=== PATIENT | female | born 1995 | race Hispanic/Latino ===

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

== ENCOUNTER 2018-11-18 02:41 | Inpatient (IN) ==
[2018-11-18] MEDS ORDERED: TYLENOL PO ONE (03:12)
[2018-11-18] MEDS ORDERED: TYLENOL ONE (03:15)
[2018-11-18 03:49] LABS: BASO# 0.01 X1000 (0.0-0.2); BASO% 0.1 % (0.0-0.8); HEMATOCRIT 28.8 % (37.0-47.0); HEMOGLOBIN 9.6 g/dL (12.0-16.0); IMM GRAN# 0.05 X1000 (0.0-0.04); IMM GRAN% 0.5 % (0.0-0.5); LYMPH# 0.45 X1000 (1.2-3.4); LYMPH% 4.9 % (20.5-51.1); MCH 29.2 PG (27-31); MCHC 33.3 g/dL (33-37); MCV 87.5 FL (81-99); MONO# 0.04 X1000 (0.11-0.59); MONO% 0.4 % (1.7-9.3); MPV 10.6 FL (7.4-10.4); NEUT# 8.55 X1000 (1.4-6.5); NEUT% 94.1 % (42.2-75.2); PLT 319 X1000 (130-400); RBC 3.29 XMIL (4.2-5.4)
[2018-11-18 04:09] LABS: AGAP 14; ALBUMIN 3.5 g/dL (3.5-5.0); ALKALINE PHOSPHATASE 126 U/L (32-104); BUN 7 mg/dL (8-22); CALCIUM 8.3 mg/dL (8.8-10.2); CHLORIDE 101 mmol/L (98-107); COSMO 270; CREATININE 0.7 mg/dL (0.5-0.9); ESTIMATED GFR > 60; GLUCOSE 139 mg/dL (70-104); GOT 29 U/L (10-30); GPT 20 U/L (10-36); POTASSIUM 3.3 mmol/L (3.5-5.1); SODIUM 135 mmol/L (136-145); TCO2 20 mmol/L (25-35); TOTAL BILIRUBIN 0.44 mg/dL (0.20-1.00)
[2018-11-18] MEDS ORDERED: ROCEPHIN 1 GM in NS 50 ML IV ONE (04:15)
[2018-11-18] MEDS ORDERED: NS 1,000 ML IV ONE ×2 (04:15→06:39)
[2018-11-18] MEDS ORDERED: NS IV ONE ×2 (04:21)
--- NOTE | 2018-11-18 04:22 | PROVIDER DOCUMENTATION ---
HPI-Female /OB/Breast - General Chief Complaint: SEPSIS ALERT - D Stated Complaint: FEVER, SOB, 4 MONTHS Time Seen by Provider: 11/18/18 03:36 Allergies/Adverse Reactions: Patient Allergies Allergy/AdvReac Type Severity Reaction Status Date / Time No Known Allergies Allergy Verified 07/21/16 05:35 Home Medications: Home Medication List Medication Instructions Recorded Confirmed Last Taken Type NK [No Home Medications] 11/13/18 11/13/18 Unknown History - History of Present Illness-Female /OB Nature of Presenting Problem: pt speaks no Bruneian, minimal Turkmen. 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 She has had fever, R flank pain, dysuria for 3 days. Is 21 weeks . Is . Review of Systems - Adult - REVIEW OF SYSTEMS - ADULT Constitutional: reports: see HPI Eyes: reports: no symptoms reported Ears, Nose, Mouth & Throat: reports: no symptoms reported Cardiovascular: reports: no symptoms reported Respiratory: reports: no symptoms reported Gastrointestinal: reports: see HPI Genitourinary: reports: dysuria Musculoskeletal: reports: no symptoms reported Integumentary: reports: no symptoms reported Neurological: reports: no symptoms reported Psychiatric: reports: no symptoms reported Endocrine: reports: no symptoms reported Hematologic/Lymphatic: reports: no symptoms reported Allergic/Immunologic: reports: no symptoms reported Past History - Adult - PAST MEDICAL HISTORY-ADULT Review of Records: reports: Medications Reviewed Major Childhood Illnesses: reports: denies history Physical Exam-General - PHYSICAL EXAM-ADULT Initial Vital Signs Reviewed: Yes - CONSTITUTIONAL General Appearance: alert, mild distress - EYES Eyes: PERRL/EOMI, pink conjunctivae - HEAD, EARS, NOSE, MOUTH & THROAT HENMT: normocephalic/atraumatic, moist mucous membranes, normal ENT inspection, pharynx normal - NECK Neck: full range of motion, supple, normal inspection - RESPIRATORY Respiratory: lungs clear, normal breath sounds, no pleuratic chest pain, no respiratory distress, no accessory muscle use - CARDIOVASCULAR Cardiovascular: tachycardia - GASTROINTESTINAL (ABDOMEN) Abdominal Exam: normal bowel sounds, soft, tenderness (R flank, R upper abd) - MUSCULOSKELETAL Back Exam: CVA tenderness Extremity: normal range of motion, non-tender - SKIN Integumentary: normal color, normal turgor, warm/dry - NEUROLOGIC Neurologic: hassock maker II-XII nml as tested, grossly normal, no motor/sensory deficits - PSYCHIATRIC Psych/Mental Status: normal mood/affect, normal thought content, normal thought process, oriented x 3 Progress - PLAN OF CARE/RESULTS Progress/Plan/Lab Results: Vital Signs - 8 hr 11/18/18 03:04 11/18/18 05:19 Temperature 102.9 F H 98.9 F Pulse Rate 157 H Respiratory Rate 20 Blood Pressure 92/48 O2 Sat by Pulse Oximetry 99 Laboratory Results - last 24 hr 11/18/18 11/18/18 11/18/18 03:19 03:19 03:19 WBC 9.10 RBC 3.29 L Hgb 9.6 L Hct 28.8 L MCV 87.5 MCH 29.2 MCHC 33.3 RDW Std Deviation 14.0 Plt Count 319 MPV 10.6 H Immature Gran % (Auto) 0.5 Neut % (Auto) 94.1 H Lymph % (Auto) 4.9 L [place] % (Auto) 0.4 L Eos % (Auto) 0.0 Baso % (Auto) 0.1 Immature Gran # (Auto) 0.05 H Neut # (Auto) 8.55 H Lymph # (Auto) 0.45 L [place] # (Auto) 0.04 L Eos # (Auto) 0.00 Baso # (Auto) 0.01 PT INR PTT (Actin FS) Sodium 135 L Potassium 3.3 L Chloride 101 Carbon Dioxide 20 L Anion Gap 14 BUN 7 L Creatinine 0.7 Estimated GFR/1.73 m2 > 60 BUN/Creatinine Ratio 10 Glucose 139 H Calculated Osmolality 270 Calcium 8.3 L Total Bilirubin 0.44 AST 29 ALT 20 Alkaline Phosphatase 126 H Creatine Kinase Troponin T Total Protein 7.0 Albumin 3.5 Globulin 3.5 Albumin/Globulin Ratio 1.0 Plasma Lactate 3.0 H Ser , Semi-Qnt Urine Source Urine Color Urine Turbidity Urine pH Ur Specific [place] Urine Protein Ur Glucose (Stick) Ur Ketones (Stick) Urine Blood Urine Nitrite Urine Bilirubin Urobilinogen Dipstick Urine Leukocytes Urine WBC (Auto) Urine RBC (Auto) U Epithel Cells (Auto) Urine Bacteria (Auto) Urine Crystals Small Round Cells Urine Casts Urine Yeast-like Cells Blood Type Antibody Screen 11/18/18 11/18/18 11/18/18 03:19 03:19 03:19 WBC RBC Hgb Hct MCV MCH MCHC RDW Std Deviation Plt Count MPV Immature Gran % (Auto) Neut % (Auto) Lymph % (Auto) [place] % (Auto) Eos % (Auto) Baso % (Auto) Immature Gran # (Auto) Neut # (Auto) Lymph # (Auto) [place] # (Auto) Eos # (Auto) Baso # (Auto) PT 14.1 INR 1.01 PTT (Actin FS) 31.1 Sodium Potassium Chloride Carbon Dioxide Anion Gap BUN Creatinine Estimated GFR/1.73 m2 BUN/Creatinine Ratio Glucose Calculated Osmolality Calcium Total Bilirubin AST ALT Alkaline Phosphatase Creatine Kinase 32 Troponin T Total Protein Albumin Globulin Albumin/Globulin Ratio Plasma Lactate Ser , Semi-Qnt Urine Source Urine Color Urine Turbidity Urine pH Ur Specific [place] Urine Protein Ur Glucose (Stick) Ur Ketones (Stick) Urine Blood Urine Nitrite Urine Bilirubin Urobilinogen Dipstick Urine Leukocytes Urine WBC (Auto) Urine RBC (Auto) U Epithel Cells (Auto) Urine Bacteria (Auto) Urine Crystals Small Round Cells Urine Casts Urine Yeast-like Cells Blood Type O POSITIVE Antibody Screen NEGATIVE 11/18/18 11/18/18 11/18/18 03:19 03:19 04:12 WBC RBC Hgb Hct MCV MCH MCHC RDW Std Deviation Plt Count MPV Immature Gran % (Auto) Neut % (Auto) Lymph % (Auto) [place] % (Auto) Eos % (Auto) Baso % (Auto) Immature Gran # (Auto) Neut # (Auto) Lymph # (Auto) [place] # (Auto) Eos # (Auto) Baso # (Auto) PT INR PTT (Actin FS) Sodium Potassium Chloride Carbon Dioxide Anion Gap BUN Creatinine Estimated GFR/1.73 m2 BUN/Creatinine Ratio Glucose Calculated Osmolality Calcium Total Bilirubin AST ALT Alkaline Phosphatase Creatine Kinase Troponin T < 0.010 Total Protein Albumin Globulin Albumin/Globulin Ratio Plasma Lactate Ser , Semi-Qnt 5834.0 Urine Source CATH Urine Color ORANGE Urine Turbidity TURBID Urine pH 5.5 Ur Specific [place] 1.010 Urine Protein 70 A Ur Glucose (Stick) TRACE Ur Ketones (Stick) 10 A Urine Blood MODERATE A Urine Nitrite POSITIVE A Urine Bilirubin NEGATIVE Urobilinogen Dipstick NORMAL Urine Leukocytes LARGE A Urine WBC (Auto) TNTC A Urine RBC (Auto) 20-40 A U Epithel Cells (Auto) <10 Urine Bacteria (Auto) 4+ Urine Crystals NONE SEEN Small Round Cells NONE SEEN Urine Casts NONE SEEN Urine Yeast-like Cells PRESENT Blood Type Antibody Screen Orders Category Date Time Status Cardiac Monitoring DIRECTED Care 11/18/18 04:06 Active IV Insertion ORDERED Care 11/18/18 04:06 Completed Notify MD of + Sepsis Screen NOW Care 11/18/18 04:06 Active Notify Physician As Ordered Care 11/18/18 04:06 Active CHEST-PORTABLE [RAD] Stat Exams 11/18/18 04:53 Taken BLOOD CULTURE [BLDCUL] Stat Lab 11/18/18 04:30 Results CBC WITH DIFF [HEME] Stat Lab 11/18/18 03:19 Completed CK PROFILE [SP CHEM] Stat Lab 11/18/18 03:19 Completed COMPREHENSIVE METABOLIC PANEL [CHEM] Stat Lab 11/18/18 03:19 Completed LACTATE, PLASMA [CHEM] Lab 11/18/18 07:15 Uncollected LACTATE, PLASMA [CHEM] Lab 11/18/18 10:15 Uncollected LACTATE, PLASMA [CHEM] Stat Lab 11/18/18 03:19 Completed PROTIME WITH INR [COAG] Stat Lab 11/18/18 03:19 Completed PTT [COAG] Stat Lab 11/18/18 03:19 Completed QUANT TEST Stat Lab 11/18/18 03:19 Completed TROPONIN T Stat Lab 11/18/18 03:19 Completed TYPE & SCREEN [BBK] Stat Lab 11/18/18 03:19 Completed UA NIMS W/REFLEX CULT [URINALYSIS] Stat Lab 11/18/18 04:12 Completed URINE CULTURE [RM] Routine Lab 11/18/18 04:51 Received URINE MANUAL MICROSCOPIC [URINALYSIS] Stat Lab 11/18/18 04:12 Completed 0.9% Sodium Chloride Inj [Ns] 1,000 ml Med 11/18/18 04:21 Active 0.9% Sodium Chloride Inj [Ns] 500 ml IV 999 mls/hr 0.9% Sodium Chloride Inj [Ns] 1,000 ml Med 11/18/18 04:15 Discontinued IV 999 mls/hr 0.9% Sodium Chloride Inj [Ns] 500 ml Med 11/18/18 04:30 Discontinued .ROUTE As directed Acetaminophen [Tylenol] Med 11/18/18 03:15 Discontinued 650 mg .ROUTE .STK-MED ONE Acetaminophen [Tylenol] Med 11/18/18 03:12 Discontinued 650 mg PO NOW ONE CefTRIAXONE [Rocephin] 1 gm Med 11/18/18 04:15 Discontinued 0.9% Sodium Chloride Inj [Ns] 50 ml IV NOW Oxygen Device Stat Oth 11/18/18 04:06 Active EKG [EKG] Stat Ther 11/18/18 02:45 Ordered Result Diagrams: 11/18/18 03:19 11/18/18 03:19 - EKG 1 Time of EKG reading by physician:: 03:08 EKG Read and Signed by:: Jeremy Bunch EKG Interpretation (*Must complete 3 of following elements*): Abnormal Rate: 157 Rhythm: sinus tach [place]: normal QRS: normal ST Wave: non-specific ST changes - XRAY 1 XRAY Study: Chest Impression: Normal - CONSULTS/PCP/HOSPITALIST Notification #1 *Consult/PCP/Hospitalist*: [place] Time Discussed: 05:39 Consult Disposition: Admit Departure - Departure Date of Disposition Decision: 11/18/18 Time of Disposition Decision: 03:45 DIAGNOSIS: Intrauterine Pyelonephritis complicating Qualifiers: Trimester: second trimester Qualified Code(s): O23.02 - Infections of kidney in , second trimester Disposition: ADMITTED INPATIENT 09 Certified Medical Emergency: Emergent Condition: Good Referrals and Follow-Ups: None,PCP [Primary Care Provider] - - Critical Care Note This patient required my direct & personal management of CC.: No Attestation - Physician/ HERON Attestation Patient care was provided by Advanced Practice Provider:: No The physician spent face to face time with patient:: Yes Advanced Practice Provider documentation review:: Supervising physician onsite and consulted in the evaluation and care of this patient. The physician did have a face to face encounter with the patient.
[2018-11-18 04:29] LABS: INR 1.01; PROTIME 14.1 Seconds (11.0-16.0)
[2018-11-18 04:30] LABS: PTT 31.1 Seconds (22.3-41.8)
[2018-11-18] MEDS ORDERED: NS 500 ML ONE (04:30)
[2018-11-18 04:36] LABS: URINE SOURCE CATH
[2018-11-18 04:40] LABS: BILIRUBIN URINE NEGATIVE (NEGATIVE); BLOOD URINE MODERATE (NEGATIVE); COLOR ORANGE; GLUCOSE URINE TRACE mg/dL (NEGATIVE); KETONE URINE 10 mg/dL (NEGATIVE); LEUKOCYTES URINE LARGE (NEGATIVE); NITRITE URINE POSITIVE (NEGATIVE); PH URINE 5.5; PROTEIN URINE 70 mg/dL (NEGATIVE); TURBIDITY URINE TURBID (CLEAR); UROBILINOGEN URINE NORMAL (NORMAL)
[2018-11-18 04:47] LABS: UR EPITHELIAL CELLS <10 /HPF (<10); URINE BACTERIA 4+ /HPF; URINE RBC 20-40 /HPF (<10); URINE WBC TNTC /HPF (<10)
[2018-11-18 04:51] LABS: URINE CASTS NONE SEEN; URINE CRYSTALS NONE SEEN; URINE SMALL ROUND CELLS NONE SEEN; URINE YEAST PRESENT
[2018-11-18] MEDS ORDERED: TYLENOL PO PRN (07:11)
[2018-11-18] MEDS ORDERED: NS 500 ML IV SCH (07:15)
--- NOTE | 2018-11-18 07:58 | Diag Imaging Result Doc PS360 ---
CHEST-PORTABLE - 11/18/2018 INDICATION: sepsis COMPARISON: None FINDINGS: Lung volumes are severely low. There are nonspecific bibasilar infiltrates or areas of atelectasis. Heart size is top normal. No pneumothorax or large pleural effusion. IMPRESSION: Nonspecific findings. Electronically signed by Rio Mccann 11/18/2018 7:56 AM
--- NOTE | 2018-11-18 08:01 | H&P REVIEW ---
H&P Update Document any changes: 23 YOF with IUP at 21 weeks transfered from [facility] ED to [facility] because of IUP 21 weeks with Pyelonephritis and elevated lactate. Temp was 102 upon arrival to [facility] ED. Lactate was 3. She was bolused with at least 1.5 L of NS and given 1gm of Rocephin. Pt had been seen on the 14 of November at [facility] and u/s performed because of vaginal bleeding. Pt c/o right flank pain. FM+. Denies vaginal bleeding or ROM. PMH: denies. PSH: denies. PobHx: x2. Meds: denies. NKDA. Non smoker. PE: Upon arrival to [facility] VS are stable. Pul: clear. RRR without M. R CVAT. Fundus is soft and nontender. Abd: soft and nontender. Lower ext: no calf tenderness, no edema. DTR 1+. Pelvic: deferred. FHR 146. A/P: IUP 21 weeks with Pyelonephritis. Continue to follow lactate labs. Another NS bolus of 500 ml. Rochephin started. Cultures sent from ED.
[2018-11-18] MEDS ORDERED: STADOL IV ONE (08:47)
[2018-11-18] MEDS ORDERED: ROCEPHIN 1 GM in NS 50 ML IV SCH (09:00)
[2018-11-18] MEDS: LR 1,000 ML IV SCH ×2 (09:06→16:35)
[2018-11-18] MEDS: NS 1,000 ML IV SCH ×2 (12:47→16:38)
[2018-11-18] MEDS: PERCOCET-5 PO PRN ×2 (14:13→18:31)
[2018-11-18 15:22] LABS: BASO# 0.01 X1000 (0.0-0.2); BASO% 0.1 % (0.0-0.8); EOS# 0.03 X1000 (0.0-0.7); EOS% 0.2 % (0.0-10.0); HEMATOCRIT 20.6 % (37.0-47.0); HEMOGLOBIN 6.9 g/dL (12.0-16.0); IMM GRAN# 0.08 X1000 (0.0-0.04); IMM GRAN% 0.5 % (0.0-0.5); LYMPH# 1.29 X1000 (1.2-3.4); LYMPH% 8.3 % (20.5-51.1); MCH 29.9 PG (27-31); MCHC 33.5 g/dL (33-37); MCV 89.2 FL (81-99); MONO# 0.73 X1000 (0.11-0.59); MONO% 4.7 % (1.7-9.3); NEUT% 86.2 % (42.2-75.2); PLT 229 X1000 (130-400); RBC 2.31 XMIL (4.2-5.4); RDW 14.2 % (11.5-14.5); WBC 15.54 X1000 (4.8-10.8)
[2018-11-18 15:45] LABS: ANISOCYTOSIS 1+; BANDS 5 % (0-1); LYMPHS 10 % (21-51); MONO 7 % (1-9); SEGS 76 % (42-75)
[2018-11-18] MEDS ORDERED: NS 250 ML IV SCH (20:15)
[2018-11-18] MEDS: ROCEPHIN 1 GM in NS 50 ML IV SCH (20:27)
[2018-11-19] MEDS: PERCOCET-5 PO PRN ×6 (00:33→22:54)
[2018-11-19] MEDS: LR 1,000 ML IV SCH ×3 (04:36→18:36)
[2018-11-19 05:55] LABS: BASO# 0.01 X1000 (0.0-0.2); BASO% 0.1 % (0.0-0.8); EOS% 0.8 % (0.0-10.0); HEMATOCRIT 21.4 % (37.0-47.0); HEMOGLOBIN 6.9 g/dL (12.0-16.0); IMM GRAN# 0.05 X1000 (0.0-0.04); IMM GRAN% 0.4 % (0.0-0.5); LYMPH# 1.77 X1000 (1.2-3.4); LYMPH% 14.4 % (20.5-51.1); MCH 29.1 PG (27-31); MCHC 32.2 g/dL (33-37); MCV 90.3 FL (81-99); MONO# 0.87 X1000 (0.11-0.59); MONO% 7.1 % (1.7-9.3); MPV 10.2 FL (7.4-10.4); NEUT# 9.49 X1000 (1.4-6.5); NEUT% 77.2 % (42.2-75.2); PLT 203 X1000 (130-400); RBC 2.37 XMIL (4.2-5.4); RDW 14.5 % (11.5-14.5); WBC 12.29 X1000 (4.8-10.8)
--- NOTE | 2018-11-19 07:57 | EKG Report ---
Test Performed on : 11/18/2018 02:52:42 AM Test Reason : sob Blood Pressure : / mmHG Vent. Rate : 157 BPM Atrial Rate : 157 BPM P-R Int : 120 ms QRS Dur : 064 ms QT Int : 314 ms P-R-T Axes : 046 069 013 degrees QTc Int : 507 ms Sinus tachycardia. Nonspecific ST abnormality Abnormal ECG No previous ECGs available Unconfirmed Result
[2018-11-19] MEDS: ROCEPHIN 1 GM in NS 50 ML IV SCH ×2 (08:12→20:29)
[2018-11-19] MEDS ORDERED: PHENERGAN IV PRN (08:46)
[2018-11-19] MEDS ORDERED: SODIUM CHLORIDE 0.9% INJ PRN (08:46)
--- NOTE | 2018-11-19 08:51 | OB/GYN PROGRESS NOTE ---
Progress Note OB - . Patient Problems: Current Active Problems Problem Status Onset Intrauterine Acute Pyelonephritis complicating Acute OB Progress Note: Vital Signs - 24 hr 11/18/18 09:21 11/18/18 09:28 11/18/18 09:50 Temperature 98.1 F 99.6 F 100 F H Pulse Rate 120 H 123 H Respiratory Rate 18 Blood Pressure 99/51 O2 Sat by Pulse Oximetry 100 11/18/18 11:28 11/18/18 14:08 11/18/18 15:18 Temperature 99.6 F 98.4 F 98.1 F Pulse Rate 112 H 98 H 98 H Respiratory Rate 16 18 16 Blood Pressure 81/45 84/49 80/46 O2 Sat by Pulse Oximetry 98 99 11/18/18 19:10 11/18/18 21:10 11/18/18 23:22 Temperature 97.5 F L 98.4 F 98.3 F Pulse Rate 89 90 82 Respiratory Rate 18 16 16 Blood Pressure 85/54 75/42 90/51 O2 Sat by Pulse Oximetry 99 99 100 11/19/18 02:46 11/19/18 07:15 Temperature 98.5 F 98.3 F Pulse Rate 92 H 89 Respiratory Rate 16 16 Blood Pressure 77/47 O2 Sat by Pulse Oximetry 100 100 Laboratory Results - last 24 hr 11/18/18 11/18/18 11/19/18 09:45 15:10 05:38 WBC 15.54 H 12.29 H RBC 2.31 L 2.37 L Hgb 6.9 L D 6.9 L Hct 20.6 L D 21.4 L MCV 89.2 90.3 MCH 29.9 29.1 MCHC 33.5 32.2 L RDW Std Deviation 14.2 14.5 Plt Count 229 203 MPV 10.0 10.2 Immature Gran % (Auto) 0.5 0.4 Neut % (Auto) 86.2 H 77.2 H Lymph % (Auto) 8.3 L 14.4 L [place] % (Auto) 4.7 7.1 Eos % (Auto) 0.2 0.8 Baso % (Auto) 0.1 0.1 Immature Gran # (Auto) 0.08 H 0.05 H Neut # (Auto) 13.40 H 9.49 H Lymph # (Auto) 1.29 1.77 [place] # (Auto) 0.73 H 0.87 H Eos # (Auto) 0.03 0.10 Baso # (Auto) 0.01 0.01 Segmented Neutrophils 76 H Band Neutrophils 5 H Lymphocytes 10 L Monocytes 7 Atypical Lymphocytes 2.0 Anisocytosis 1+ Plasma Lactate 0.8 Pt c/o pain. It is controlled with meds. She does have some nausea and vomited this morning. +FM no ctxs/VB/LOF no CP/SOB Vitals as above Gen: AAOx3 NAD CV: RRR no g/m/r Lungs: CTAB no w/r/r Abd: gravid NT BacK Right CVAT Ext: no c/c/e Labs: urine culture + gram negative rods A: IUP at 21 weeks pyelonephritis Nausea P: Cont IV abx Phenergan for N/V Await culture results
[2018-11-19] MEDS: FERROUS SULFATE PO SCH ×2 (13:29→20:30)
[2018-11-19] MEDS ORDERED: ZOFRAN IV PRN (18:37)
[2018-11-20] MEDS: LR 1,000 ML IV SCH ×2 (03:22→17:17)
[2018-11-20] MEDS: PERCOCET-5 PO PRN ×2 (03:33→15:06)
--- NOTE | 2018-11-20 05:55 | OB/GYN PROGRESS NOTE ---
Progress Note OB - . Patient Problems: Current Active Problems Problem Status Onset Intrauterine Acute Pyelonephritis complicating Acute OB Progress Note: Vital Signs - 24 hr 11/19/18 07:15 11/19/18 12:30 11/19/18 16:40 Temperature 98.3 F 99.5 F 98.5 F Pulse Rate 89 91 H 99 H Respiratory Rate 16 16 16 Blood Pressure 77/47 85/54 94/55 O2 Sat by Pulse Oximetry 100 100 100 11/19/18 20:24 11/20/18 00:11 11/20/18 03:35 Temperature 99.8 F H 98.4 F 98.1 F Pulse Rate 107 H 107 H 102 H Respiratory Rate 22 20 20 Blood Pressure 98/59 89/50 98/61 O2 Sat by Pulse Oximetry 100 98 100 Laboratory Results - last 24 hr 11/19/18 05:38 WBC 12.29 H RBC 2.37 L Hgb 6.9 L Hct 21.4 L MCV 90.3 MCH 29.1 MCHC 32.2 L RDW Std Deviation 14.5 Plt Count 203 MPV 10.2 Immature Gran % (Auto) 0.4 Neut % (Auto) 77.2 H Lymph % (Auto) 14.4 L [place] % (Auto) 7.1 Eos % (Auto) 0.8 Baso % (Auto) 0.1 Immature Gran # (Auto) 0.05 H Neut # (Auto) 9.49 H Lymph # (Auto) 1.77 [place] # (Auto) 0.87 H Eos # (Auto) 0.10 Baso # (Auto) 0.01 The pt states that she still has back pain but it is much better. She has not had any fever overnight no ctxs, VB, LOF +FM Vitals as above Gen: AAOx3 NAD CV: RRR no g/m/r Lungs: CTAB no w/r/r Abd: +BS soft Gravid Ext: no C/C/E Labs UC sensitivities pending A: IUP at 21 weeks pyeolnephritis P: Cont IV abx transition to po when culture is complete CBC today Possible D/C tomorrow or
[2018-11-20 06:45] LABS: BASO# 0.01 X1000 (0.0-0.2); BASO% 0.1 % (0.0-0.8); EOS# 0.01 X1000 (0.0-0.7); EOS% 0.1 % (0.0-10.0); HEMATOCRIT 21.5 % (37.0-47.0); IMM GRAN# 0.04 X1000 (0.0-0.04); IMM GRAN% 0.5 % (0.0-0.5); LYMPH# 1.11 X1000 (1.2-3.4); LYMPH% 14.4 % (20.5-51.1); MCHC 32.6 g/dL (33-37); MCV 89.2 FL (81-99); MONO# 0.57 X1000 (0.11-0.59); MONO% 7.4 % (1.7-9.3); MPV 10.2 FL (7.4-10.4); NEUT# 5.95 X1000 (1.4-6.5); NEUT% 77.5 % (42.2-75.2); PLT 220 X1000 (130-400); RBC 2.41 XMIL (4.2-5.4); WBC 7.69 X1000 (4.8-10.8)
[2018-11-20] MEDS: FERROUS SULFATE PO SCH (10:08)
[2018-11-20] MEDS: ROCEPHIN 1 GM in NS 50 ML IV SCH ×2 (10:08→20:20)
[2018-11-20] MEDS ORDERED: SALINE LOCK IV FLUID XX ONE (10:27)
[2018-11-21 09:02] VITALS: BP 87/53
[2018-11-21] MEDS: FERROUS SULFATE PO SCH (09:07)
[2018-11-21] MEDS: PERCOCET-5 PO PRN (09:08)
--- NOTE | 2018-11-21 14:03 | DISCHARGE SUMMARY ---
ADMISSION DATE: 11/18/2018 DISCHARGE DATE: 11/21/2018 ADMISSION DIAGNOSES: Intrauterine 21 weeks with right pyelonephritis. FINAL DIAGNOSIS: Intrauterine 21 weeks with right pyelonephritis. PROCEDURES: 1. IV antibiotics. 2. Urine culture. 3. Obstetrical ultrasound. BRIEF HISTORY: The patient is a 23-year-old female, who presents with side pain. She is a G3, P2 with no care to date. Patient was noted to have a fever and elevated white count, and was admitted for treatment of right pyelonephritis. PAST MEDICAL HISTORY: Unremarkable. PAST SURGICAL HISTORY: None. OB HISTORY: She is a G3, P2, spontaneous vaginal delivery x2. MEDICATIONS: None. ALLERGIES: No known drug allergies. SOCIAL HISTORY: Tobacco use none. PHYSICAL EXAMINATION: Vital Signs: Stable. Abdomen: Right CVA tenderness. Lungs: Clear. Heart: Regular rate and rhythm. Extremities: No calf tenderness. No edema DTRs 1+. Pelvic: heart rate was 146. Pelvic ultrasound was performed and identified [place] IUP with the dating of 21 weeks. ASSESSMENT AND PLAN: A 23-year-old G3, P2, at 21 weeks gestation with a right pyelonephritis. Patient to be admitted and started on IV antibiotics. Also, she was started on iron for anemia. HOSPITAL COURSE: The patient was placed on Rocephin for antibiotic therapy. Urine culture identified E. coli that was sensitive to penicillin. The patient improved. From a pain standpoint, she was able to tolerate food. Fevers defervesced and white count improved. It was felt on hospital day #4 that she could be discharged home. DISCHARGE PLANS: The patient will be discharged home. Follow up in 1 week for care establishment as well as to follow up her pyelonephritis. DISCHARGE MEDICATIONS: 1. vitamins. 2. Iron sulfate. 3. Penicillin 500 mg. cc: Rony Martin III, MD
== END 2018-11-21 11:00 | disposition home or self-care (01) | DRG 833 ==
LOC: ED 02:41 → P.LD 05:47
PROVIDERS: ADMIT Emergency Medicine; ATTEND Obstetrics & Gynecology
CPT/HCPCS: 71010; 71045; 80053; 81001; 82550; 83605; 84484; 84702; 85025; 85610; 85730; 86850; 86900; 86901; 87040; 87077; 87088; 87186; 93005; A9270; J0595; J0696; J2550; J7030; J7040; J7050; J7120

== ENCOUNTER 2019-03-24 07:18 | Inpatient (IN) ==
--- NOTE | 2019-03-24 07:39 | PROVIDER DOCUMENTATION ---
HPI-Female /OB/Breast - General Chief Complaint: Female Stated Complaint: 11M / IN LABOR Time Seen by Provider: 03/24/19 07:34 Source: reports: patient Allergies/Adverse Reactions: Patient Allergies Allergy/AdvReac Type Severity Reaction Status Date / Time No Known Allergies Allergy Verified 03/24/19 07:27 Home Medications: Home Medication List Medication Instructions Recorded Confirmed Last Taken Type NK [No Home Medications] 11/13/18 03/24/19 Unknown History - History of Present Illness-Female /OB Nature of Presenting Problem: 3rd water broke at 5 am has been having contractions every 2 to 3 minutes Does patient report she is ?: Yes Location of complaint: reports: vaginal Radiation: reports: none Quality of Pain: reports: cramping Severity in ED: reports: severe Onset/Duration: reports: 1-3 hours ago Timing: reports: still present, getting worse Context/Activities at Onset: reports: none Vaginal Symptoms: denies: abnormal bleeding, passing clots/tissue Vaginal Bleeding Amount: None Urinary Symptoms: reports: no symptoms Related Symptoms: reports: pelvic pain Leakage of Fluid: uncertain Modifying Factors: improves with: nothing Similar Symptoms Previously?: No Recently seen or treated by another doctor?: No Review of Systems - Adult - REVIEW OF SYSTEMS - ADULT Constitutional: reports: no symptoms reported Eyes: reports: no symptoms reported Ears, Nose, Mouth & Throat: reports: no symptoms reported Cardiovascular: reports: no symptoms reported Respiratory: reports: no symptoms reported Gastrointestinal: reports: no symptoms reported Genitourinary: reports: no symptoms reported Musculoskeletal: reports: no symptoms reported Integumentary: reports: no symptoms reported Neurological: reports: no symptoms reported Endocrine: reports: no symptoms reported Hematologic/Lymphatic: reports: no symptoms reported Allergic/Immunologic: reports: no symptoms reported Past History - Adult - PAST MEDICAL HISTORY-ADULT Review of Records: reports: Nursing Assessment Review, Medications Reviewed, Social history reviewed & non-contributory. Major Childhood Illnesses: reports: denies history Physical Exam-General - PHYSICAL EXAM-ADULT Initial Vital Signs Reviewed: Yes - CONSTITUTIONAL General Appearance: moderate distress - EYES Eyes: PERRL/EOMI - HEAD, EARS, NOSE, MOUTH & THROAT HENMT: normocephalic/atraumatic - NECK Neck: non-tender - RESPIRATORY Respiratory: lungs clear - CARDIOVASCULAR Cardiovascular: regular rate, rhythm - GASTROINTESTINAL (ABDOMEN) Abdominal Exam: distended - LYMPHATIC Lymphatic: no adenopathy - MUSCULOSKELETAL Back Exam: normal inspection Extremity: normal range of motion - SKIN Integumentary: normal color, normal turgor - NEUROLOGIC Neurologic: grossly normal - PSYCHIATRIC Psych/Mental Status: oriented x 3 Progress - PLAN OF CARE/RESULTS Progress/Plan/Lab Results: Vital Signs - 8 hr 03/24/19 07:24 Temperature 97.4 F L Pulse Rate 128 H Respiratory Rate 26 H Blood Pressure 106/75 O2 Sat by Pulse Oximetry 100 Departure - Departure Date of Disposition Decision: 03/24/19 Time of Disposition Decision: 07:39 DIAGNOSIS: Intrauterine , Active labor Disposition: ADMITTED INPATIENT 09 Certified Medical Emergency: Emergent Condition: Critical Referrals and Follow-Ups: None,PCP [Primary Care Provider] - - Critical Care Note This patient required my direct & personal management of CC.: Yes Total Time (mins): 30 Critical Care Statement: This patient required my direct personal management to treat or rule out processes, the absence of which, could potentiallly result in sudden, clinically significant life or limb threatening deterioration. Attestation - Physician/ HERON Attestation Patient care was provided by Advanced Practice Provider:: No The physician spent face to face time with patient:: Yes Advanced Practice Provider documentation review:: Supervising physician onsite and consulted in the evaluation and care of this patient. The physician did have a face to face encounter with the patient.
[2019-03-24] MEDS ORDERED: PEPCID PO ONE (08:02)
[2019-03-24] MEDS ORDERED: STADOL IV PRN (08:02)
[2019-03-24] MEDS ORDERED: PEPCID PO PRN (08:02)
[2019-03-24] MEDS ORDERED: KEFZOL 1 GM/D5W 1 GM/50 ML IVPB IV PRN (08:02)
[2019-03-24] MEDS ORDERED: PEPCID IV PRN (08:02)
[2019-03-24] MEDS ORDERED: TYLENOL PO PRN (08:02)
[2019-03-24] MEDS ORDERED: ZOFRAN IV PRN (08:02)
[2019-03-24] MEDS ORDERED: AMPICILLIN 2 GM in NS 100 ML IV ONE (08:02)
[2019-03-24] MEDS ORDERED: REGLAN PO ONE (08:02)
[2019-03-24] MEDS ORDERED: XYLOCAINE-MPF 1% INJ ONE (08:04)
[2019-03-24] MEDS ORDERED: MINERAL OIL TOP ONE (08:05)
[2019-03-24] MEDS ORDERED: PITOCIN 30 UNITS/NS 30 UNIT/500 ML IV.SOLN ONE (08:10)
[2019-03-24] MEDS ORDERED: LR 1,000 ML ONE (08:10)
[2019-03-24] MEDS ORDERED: LR 1,000 ML IV SCH (08:15)
[2019-03-24] MEDS ORDERED: SODIUM CHLORIDE 0.9% INJ SCH (08:15)
[2019-03-24] MEDS ORDERED: PITOCIN 30 UNITS/NS 30 UNIT/500 ML IV.SOLN IV SCH ×2 (08:15→11:00)
[2019-03-24 09:01] LABS: BASO# 0.03 X1000 (0.0-0.2); BASO% 0.3 % (0.0-0.8); EOS# 0.04 X1000 (0.0-0.7); EOS% 0.4 % (0.0-10.0); HEMATOCRIT 32.2 % (37.0-47.0); HEMOGLOBIN 10.1 g/dL (12.0-16.0); IMM GRAN# 0.18 X1000 (0.0-0.04); IMM GRAN% 1.6 % (0.0-0.5); LYMPH# 3.24 X1000 (1.2-3.4); LYMPH% 28.7 % (20.5-51.1); MCH 27.4 PG (27-31); MCHC 31.4 g/dL (33-37); MCV 87.3 FL (81-99); MONO# 0.75 X1000 (0.11-0.59); MONO% 6.6 % (1.7-9.3); MPV 12.1 FL (7.4-10.4); NEUT# 7.05 X1000 (1.4-6.5); NEUT% 62.4 % (42.2-75.2); PLT 278 X1000 (130-400); RBC 3.69 XMIL (4.2-5.4); RDW 15.9 % (11.5-14.5); WBC 11.29 X1000 (4.8-10.8)
--- NOTE | 2019-03-24 09:06 | HISTORY AND PHYSICAL ---
ADMITTING PHYSICIAN: Dr. Kika Bucio. CHIEF COMPLAINT: Abdominal pain. HISTORY OF PRESENT ILLNESS: A 23-year-old, G3, P2-0-0-2, at 39 weeks and 0 days, presented to [facility] with a complaint of frequent contractions. She was subsequently transferred to [facility] for further care. She states contractions started early this AM and she noted leaking fluid at 0530 this AM. Upon arrival, she was noted to be 8 cm dilated with suspected rupture of membranes and clear fluid coming from vagina. She has had no care this . She was hospitalized at approximately 20 weeks with pyelonephritis, and her due date is established by an ultrasound performed at 20 weeks. She denies any other hospitalizations this . She did not establish care after discharge from hospital with pyelonephritis. Estimated due date 03/31/2019 by 20-week ultrasound. OBSTETRIC HISTORY: G1, spontaneous vaginal delivery, female in 2014. The patient delivered in [facility]. G2, spontaneous vaginal delivery, female in 2017. The patient delivered in the [facility]. G3 equals current with no care. PAST MEDICAL HISTORY: Denies. GYNECOLOGIC HISTORY: She denies any history of Pap smear. She denies any history of sexually transmitted infections. MEDICATIONS: None. ALLERGIES: No known drug allergies. PAST SURGICAL HISTORY: Denies. SOCIAL HISTORY: She denies tobacco, alcohol, or drug use. FAMILY HISTORY: Denies. REVIEW OF SYSTEMS: Negative, except as mentioned in HPI. PHYSICAL EXAMINATION: VITAL SIGNS: Blood pressure 120/76, heart rate 96, O2 saturation 100% on room air, respiratory rate 20, temperature 97.4 degrees. GENERAL: Alert, in moderate distress secondary to pain. HEART: Regular rate and rhythm. LUNGS: Clear to auscultation bilaterally. No respiratory distress. ABDOMEN: Soft, gravid, nontender. STERILE VAGINAL EXAM: 8/100/+1, No bag of water palpated. EXTREMITIES: No clubbing, cyanosis, or edema. LABORATORY DATA: labs pending. heart tracings 130/moderate/positive excels/no decelerations. Tocometry every 2 minutes. GBS status unknown. IMAGING: Bedside ultrasound: Vertex presentation. ASSESSMENT AND PLAN: A 23-year-old, G3, P2-0-0-2, at 39 weeks and 0 days at T2 ultrasound with no care, presents in labor. 1. Will admit to Labor and Delivery. Maternal status is stable. Category 1 tracing. 2. Will draw lab work. 3. GBS status unknown. Will start ampicillin protocol per nursery. 4. Anticipate vaginal delivery. 5. The patient may have epidural if she desires. 6. consult [facility] no [facility]
[2019-03-24 10:37] LABS: RPR NON-REACTIVE (NONREACTIVE)
[2019-03-24 10:38] LABS: RAPID HIV PRESUMPTIVE NEGATIVE; RUBELLA SCREEN NON IMMUNE (IMMUNE)
[2019-03-24] MEDS ORDERED: BENADRYL IV PRN (10:52)
[2019-03-24] MEDS ORDERED: XYLOCAINE-MPF 1% INJ PRN (10:52)
[2019-03-24] MEDS ORDERED: BOOSTRIX VACCINE IM ONE (10:52)
[2019-03-24] MEDS ORDERED: AMBIEN PO PRN (10:52)
[2019-03-24] MEDS ORDERED: M-M-R II VACCINE SUBQ ONE (10:52)
[2019-03-24] MEDS ORDERED: BENADRYL PO PRN (10:52)
[2019-03-24] MEDS ORDERED: PERI MEDS (DERMOPLAST/NUPERCAINAL/TUCKS) MISC PRN (10:52)
[2019-03-24] MEDS ORDERED: ATARAX PO PRN (10:52)
[2019-03-24] MEDS ORDERED: PITOCIN IM PRN (10:52)
[2019-03-24] MEDS ORDERED: HYDROXYZINE IM PRN (10:52)
[2019-03-24] MEDS ORDERED: CYTOTEC PO PRN (10:52)
[2019-03-24] MEDS ORDERED: MINERAL OIL PO PRN (10:52)
[2019-03-24] MEDS ORDERED: PITOCIN 20 UNITS/NS 20 UNITS/1,000 ML IV.SOLN IV SCH (11:00)
--- NOTE | 2019-03-24 11:19 | OPERATIVE NOTE ---
PROCEDURE DATE: 03/24/2019 DELIVERING PHYSICIAN: Rayray Bucio DO. DELIVERY NOTE: The patient presented to labor and delivery as a transfer of care from [facility] for labor. She is a 23-year-old, G 3, P 2-0-0-2, at 39 weeks and 0 days by T2 ultrasound. Upon arrival, she was 8 cm dilated. She progressed to complete naturally. She underwent a spontaneous vaginal delivery of a vigorous and viable male over an intact perineum. delivered in RAFAEL position with nuchal cord x1 that was reduced prior to delivery. Head, shoulders, and body delivered with maternal expulsive effort. Cord was clamped and cut. Apgars 9 and 10. Placenta delivered spontaneously intact with a three-vessel cord. No lacerations were noted. ANESTHESIA: None. ESTIMATED BLOOD LOSS: 150 mL. Pediatric nurse in attendance. Mother stable. Cord gases obtained. MTDD
[2019-03-24] MEDS ORDERED: AMPICILLIN 1 GM in NS 50 ML IV SCH (12:03)
[2019-03-24] MEDS ORDERED: CYTOTEC PR ONE (13:43)
[2019-03-24] MEDS: PERCOCET-10 PO PRN ×2 (14:41→18:00)
[2019-03-24 20:18] LABS: HIV ANTIBODY SCREEN SEE COMMENTS
[2019-03-24] MEDS: MOTRIN PO PRN (22:07)
[2019-03-24] MEDS: PERCOCET-5 PO PRN (22:08)
[2019-03-24] MEDS: PERICOLACE PO SCH (22:08)
[2019-03-25] MEDS: PERCOCET-5 PO PRN ×2 (04:45→11:07)
[2019-03-25 04:58] LABS: BASO# 0.02 X1000 (0.0-0.2); BASO% 0.2 % (0.0-0.8); EOS# 0.12 X1000 (0.0-0.7); EOS% 1.1 % (0.0-10.0); HEMATOCRIT 26.2 % (37.0-47.0); HEMOGLOBIN 8.1 g/dL (12.0-16.0); IMM GRAN# 0.07 X1000 (0.0-0.04); IMM GRAN% 0.7 % (0.0-0.5); LYMPH# 3.02 X1000 (1.2-3.4); LYMPH% 28.5 % (20.5-51.1); MCH 27.3 PG (27-31); MCHC 30.9 g/dL (33-37); MCV 88.2 FL (81-99); MONO# 0.55 X1000 (0.11-0.59); MONO% 5.2 % (1.7-9.3); MPV 11.7 FL (7.4-10.4); NEUT% 64.3 % (42.2-75.2); PLT 235 X1000 (130-400); RBC 2.97 XMIL (4.2-5.4); RDW 15.7 % (11.5-14.5); WBC 10.58 X1000 (4.8-10.8)
[2019-03-25] MEDS ORDERED: FERROUS SULFATE PO SCH (09:00)
[2019-03-25 10:49] LABS: HEPATITIS B SURFACE ANTIGEN SEE COMMENTS
[2019-03-25] MEDS: FERROUS SULFATE PO SCH ×2 (11:07→20:20)
[2019-03-25] MEDS ORDERED: FLU VACCINE IM ONE (15:45)
[2019-03-25] MEDS: PERCOCET-10 PO PRN ×2 (16:41→20:19)
[2019-03-25] MEDS: MOTRIN PO PRN (20:19)
[2019-03-25] MEDS: PERICOLACE PO SCH (20:20)
[2019-03-26] MEDS: PERCOCET-10 PO PRN (04:31)
[2019-03-26] MEDS: MOTRIN PO PRN (04:31)
--- NOTE | 2019-03-26 07:28 | OB/GYN PROGRESS NOTE ---
- Subjective Pt seen and examined. Reports mild abdominal pain and requesting pain meds. Pt also reporting left hip pain. Denies complication with ambulation. Son was transferred to for respiratory infection. Admits to positive breasting. Lochia decreased. OB Physical Exam Vital Signs - 8 hr 03/26/19 04:25 Temperature 97.8 F Pulse Rate 65 Respiratory Rate 18 Blood Pressure 99/55 O2 Sat by Pulse Oximetry 97 - CONSTITUTIONAL General Appearance: appears well, alert, no apparent distress - RESPIRATORY Respiratory: lungs clear, normal breath sounds - CARDIOVASCULAR Cardiovascular: regular rate, rhythm - GASTROINTESTINAL (ABDOMEN) Abdominal Exam: normal bowel sounds, non tender, soft - MUSCULOSKELETAL Extremity: non-tender, no pedal edema - PSYCHIATRIC Psych/Mental Status: normal mood/affect, oriented x 3 Active Medications Generic Name Dose Route Start Last Admin Trade Name Freq PRN Reason Stop Dose Admin Acetaminophen 650 mg 03/24/19 08:02 03/25/19 22:17 Tylenol PO 650 mg Q4-6H PRN PRN Administration Headache Benzocaine 1 each 03/24/19 10:52 Hailey Meds (Dermoplast/Nupercainal/Tucks) MISC 3-4XDAY PRN PRN episiotomy/hemorrhoids Butorphanol Tartrate 2 mg 03/24/19 08:02 03/24/19 10:37 Stadol IV 1 mg PRN PRN Administration Pain Diphenhydramine HCl 12.5 mg 03/24/19 10:52 Benadryl IV Q4H PRN PRN Itching Diphenhydramine HCl 25 mg 03/24/19 10:52 Benadryl PO Q4H PRN PRN Itching Famotidine 40 mg 03/24/19 08:02 Pepcid PO Q12H PRN PRN GI upset or indigestion Famotidine 20 mg 03/24/19 08:02 Pepcid IV Q12H PRN PRN GI upset or indigestion Ferrous Sulfate 325 mg 03/25/19 09:00 03/25/19 20:20 Ferrous Sulfate PO 325 mg BID AMADEO Administration Hydroxyzine HCl 50 mg 03/24/19 10:52 Hydroxyzine IM Q3-4H PRN PRN Nausea Hydroxyzine HCl 50 mg 03/24/19 10:52 Atarax PO Q3-4H PRN PRN Nausea Lactated Ringer's 1,000 mls @ 0 mls/hr 03/24/19 08:15 Lr IV .Q0M AMADEO As Directed Cefazolin Sodium/Dextrose 1 gm in 50 mls @ 100 mls/hr 03/24/19 08:02 Kefzol 1 Gm/D5w IV ONCE PRN PRN SECTION Oxytocin/Sodium Chloride 20 units in 1,000 mls @ 0 mls/hr 03/24/19 11:00 03/24/19 11:17 Pitocin 20 Units/Ns IV 125 mls/hr .Q0M AMADEO Administration As Directed Ibuprofen 800 mg 03/24/19 10:52 03/26/19 04:31 Motrin PO 800 mg Q8H PRN PRN Administration cramping Lidocaine HCl 30 ml 03/24/19 10:52 Xylocaine-Mpf 1% INJ PRN PRN Perineal repair Mineral Oil 30 ml 03/24/19 10:52 Mineral Oil PO PRN PRN Perineal massage Misoprostol 800 microgm 03/24/19 10:52 Cytotec PO PRN PRN Severe bleeding Ondansetron HCl 4 mg 03/24/19 08:02 Zofran IV PRN PRN Nausea Oxycodone/Acetaminophen 1 each 03/24/19 10:52 03/26/19 04:31 Percocet-10 PO 1 each Q3-4H PRN PRN Administration Pain (7-10 on Pain Scale) Oxycodone/Acetaminophen 1 each 03/24/19 10:52 03/25/19 11:07 Percocet-5 PO 1 each Q3-4H PRN PRN Administration Pain (1-6 on Pain Scale) Oxytocin 20 unit 03/24/19 10:52 Pitocin IM PRN PRN Severe bleeding Senna/Docusate Sodium 1 each 03/24/19 21:00 03/25/19 20:20 Pericolace PO 1 each QHS AMADEO Administration Sodium Chloride 5 - 10 ml 03/24/19 08:15 Sodium Chloride 0.9% INJ DIRECTED AMADEO Zolpidem Tartrate 10 mg 03/24/19 10:52 Ambien PO HS PRN PRN Sleep Laboratory Last Values WBC 10.58 X1000 (4.8-10.8) 03/25/19 04:18 RBC 2.97 XMIL (4.2-5.4) L 03/25/19 04:18 Hgb 8.1 g/dL (12.0-16.0) L D 03/25/19 04:18 Hct 26.2 % (37.0-47.0) L 03/25/19 04:18 MCV 88.2 FL (81-99) 03/25/19 04:18 MCH 27.3 PG (27-31) 03/25/19 04:18 MCHC 30.9 g/dL (33-37) L 03/25/19 04:18 RDW Std Deviation 15.7 % (11.5-14.5) H 03/25/19 04:18 Plt Count 235 X1000 (130-400) 03/25/19 04:18 MPV 11.7 FL (7.4-10.4) H 03/25/19 04:18 Immature Gran % (Auto) 0.7 % (0.0-0.5) H 03/25/19 04:18 Neut % (Auto) 64.3 % (42.2-75.2) 03/25/19 04:18 Lymph % (Auto) 28.5 % (20.5-51.1) 03/25/19 04:18 [place] % (Auto) 5.2 % (1.7-9.3) 03/25/19 04:18 Eos % (Auto) 1.1 % (0.0-10.0) 03/25/19 04:18 Baso % (Auto) 0.2 % (0.0-0.8) 03/25/19 04:18 Immature Gran # (Auto) 0.07 X1000 (0.0-0.04) H 03/25/19 04:18 Neut # (Auto) 6.80 X1000 (1.4-6.5) H 03/25/19 04:18 Lymph # (Auto) 3.02 X1000 (1.2-3.4) 03/25/19 04:18 [place] # (Auto) 0.55 X1000 (0.11-0.59) 03/25/19 04:18 Eos # (Auto) 0.12 X1000 (0.0-0.7) 03/25/19 04:18 Baso # (Auto) 0.02 X1000 (0.0-0.2) 03/25/19 04:18 Corrected WBC (Man) Cancelled 03/24/19 08:48 Glucose 90 mg/dL (70-104) 03/24/19 08:48 RPR NON-REACTIVE (NONREACTIVE) 03/24/19 08:48 Hep Bs Antigen SEE COMMENTS 03/24/19 08:48 HIV 1&2 Antibody Screen SEE COMMENTS 03/24/19 10:38 HIV 1&2 Antibody Rapid PRESUMPTIVE NEGATIVE 03/24/19 08:48 Rubella Immunity Screen NON IMMUNE (IMMUNE) H 03/24/19 08:48 Blood Type O POSITIVE 03/24/19 08:48 Antibody Screen NEGATIVE 03/24/19 08:48 - Assessment & Plan (1) Status post vaginal delivery Status: Acute Plan: 23yo PPD#2 s/p -HD stable -OOB to ambulation -regular dicet -continue routine pp care -discussed control options, plans on OCP use -plan for d/c home
[2019-03-26 10:13] VITALS: BP 112/64
[2019-03-26] MEDS: FERROUS SULFATE PO SCH (11:50)
== END 2019-03-26 13:40 | disposition home or self-care (01) | DRG 807 ==
LOC: P.ED 07:18 → LD 07:58
PROVIDERS: ADMIT Student in an Organized Health Care Education/Training Program; ATTEND Student in an Organized Health Care Education/Training Program